=== PATIENT | female | born 1990 | race Two or more races ===

== ENCOUNTER 2024-03-05 10:18 | Inpatient (IN) ==
[~2024-03-05 10:18] MED LIST: Lidocaine 1% VIAL 10 MG/ML 30 ML VIAL INJ PRN
[2024-03-05] MEDS: Dinoprostone 10 MG VAG.SUPP VAGINAL ONE (11:26)
[2024-03-05 12:03] LABS: Hematocrit 34.3 % (35-45); Hemoglobin 11.4 g/dL (11.5-14.3); Mean Corpuscular Hemoglobin 28.3 pg (27-33); Mean Corpuscular Hgb Conc 33.1 g/dL (31-36); Mean Corpuscular Volume 85.5 fL (80-97); Red Blood Count 4.01 10^6/uL (3.63-4.92); Red Cell Distribution Width 13.5 % (12-17); White Blood Count 9.2 10^3/uL (3.8-11.8)
[2024-03-05 12:09] LABS: Albumin 3.5 g/dL (3.2-5.2); Albumin/Globulin Ratio 1.2 (1-3); Calcium 9.1 mg/dL (8.6-10.3); Creatinine, Serum 0.62 mg/dL (0.51-0.95); Globulin 2.9 g/dL (2-4); Potassium 4.8 mmol/L (3.5-5.0); Total Bilirubin 0.2 mg/dL (0.2-1.0); Total Protein 6.4 g/dL (6.4-8.9); Uric Acid 5.5 mg/dL (2.3-6.6); eGFR CKD-EPI 121.3 (>60)
[2024-03-05 12:24] LABS: Urine Creatinine Concentration 23.6 mg/dL (20.00-320.00); Urine TP Creat Ratio 0.25 mg/mg
[2024-03-05 12:27] LABS: Urine Benzodiazepine Screen None Detected (None Detect); Urine Cannabinoids Screen None Detected (None Detect); Urine Opiates Screen None Detected (None Detect)
[2024-03-05 12:37] LABS: ABS Lymphocytes 1.8 10^3/uL (1.0-4.8); ABS Monocytes 0.7 10^3/uL (0.0-0.9); ABS Neutrophils 6.6 10^3/uL (1.5-7.6); Eosinophil % 0.3 %; Giant Platelets Present; Lymphocyte % 19.7 %; Platelet Count 182 10^3/uL (150-450)
[2024-03-05] MEDS: Lactated Ringers 1000 ml BAG 1,000 ML IV ONE (13:52)
[2024-03-06] MEDS: miSOPROStol 100 mcg TAB ONE ×3 (10:58→20:44)
[2024-03-06 11:59] LABS: ABS Basophils 0.1 10^3/uL (0.0-0.1); ABS Lymphocytes 1.5 10^3/uL (1.0-4.8); ABS Monocytes 0.7 10^3/uL (0.0-0.9); ABS Neutrophils 9.9 10^3/uL (1.5-7.6); Eosinophil % 0.1 %; Hematocrit 35.3 % (35-45); Hemoglobin 11.6 g/dL (11.5-14.3); Lymphocyte % 12.5 %; Mean Corpuscular Hemoglobin 27.9 pg (27-33); Mean Corpuscular Hgb Conc 32.8 g/dL (31-36); Mean Corpuscular Volume 85.1 fL (80-97); Mean Platelet Volume 10.9 fL (7.5-11.2); Platelet Count 187 10^3/uL (150-450); Red Blood Count 4.14 10^6/uL (3.63-4.92); Red Cell Distribution Width 13.4 % (12-17); White Blood Count 12.3 10^3/uL (3.8-11.8)
[2024-03-06 12:40] LABS: Albumin 3.4 g/dL (3.2-5.2); Albumin/Globulin Ratio 1.2 (1-3); Calcium 9.1 mg/dL (8.6-10.3); Creatinine, Serum 0.72 mg/dL (0.51-0.95); Globulin 2.9 g/dL (2-4); Total Bilirubin 0.2 mg/dL (0.2-1.0); Total Protein 6.3 g/dL (6.4-8.9); Uric Acid 5.5 mg/dL (2.3-6.6); eGFR CKD-EPI 113.9 (>60)
[2024-03-06 12:46] LABS: Urine Creatinine Concentration 32.97 mg/dL (20.00-320.00); Urine TP Creat Ratio 0.27 mg/mg
[2024-03-06] MEDS: Lidocaine 2% JELLY 6 ML Topical TOPICAL ONE (15:39)
[2024-03-07] MEDS: Oxytocin in LR 20,000 MILLI.UNIT/1,000 ML BAG IV SCH (05:21)
[2024-03-07] MEDS: Lidocaine 2% JELLY 6 ML Topical TOPICAL SCH (07:48)
[2024-03-07] MEDS: miSOPROStol 100 mcg TAB ONE (12:59)
[2024-03-07] MEDS ORDERED: Terbutaline INJ 1 MG/ML 1 ml VIAL SUBCUT PRN (17:06)
[2024-03-07] MEDS: miSOPROStol 100 mcg TAB VAGINAL ONE (17:15)
[2024-03-08] MEDS ORDERED: Oxytocin 10 UNITS/ML 1 ML VIAL ONE (04:39)
[2024-03-08] MEDS ORDERED: Morphine PF AMP (0.5MG/ML) 5 MG/10 ML AMP ONE (04:39)
[2024-03-08] MEDS ORDERED: Scopolamine 1 mg/72hr PATCH ONE (04:39)
[2024-03-08] MEDS ORDERED: Phenylephrine 40 mcg/mL 10mL (400mcg) SYRINGE ONE (04:40)
[2024-03-08] MEDS ORDERED: Acetaminophen IV 1 GM/100ML 1,000 MG/100 ML BAG IV ONE (05:41)
[2024-03-08] MEDS ORDERED: Ondansetron 4 mg VIAL 2 MG/ML 2 ml VIAL ONE (05:44)
[2024-03-08] MEDS ORDERED: Dexamethasone IV 4 MG/ML VIAL 1 ml VIAL ONE (05:46)
[2024-03-08] MEDS ORDERED: Naloxone 0.4 mg VIAL 0.4 mg/ml 1 ml VIAL IV PUSH PRN (05:49)
[2024-03-08] MEDS ORDERED: Metoclopramide 5 MG/ML VIAL (10 mg) IV PRN (05:49)
[2024-03-08] MEDS ORDERED: Acetaminophen IV 1 GM/100ML 1,000 MG/100 ML BAG IV PRN (05:49)
[2024-03-08] MEDS ORDERED: Ondansetron 4 mg VIAL 2 MG/ML 2 ml VIAL IV PRN (05:49)
[2024-03-08] MEDS ORDERED: Naloxone 0.4 mg VIAL 0.4 mg/ml 1 ml VIAL IV PRN (05:50)
[2024-03-08] MEDS ORDERED: fentaNYL 100 mcg/2 ml 50 MCG/ML VIAL IV PRN (05:50)
[2024-03-08] MEDS ORDERED: Polyethylene Glycol 3350 17 GM PACKET PO PRN (06:04)
[2024-03-08] MEDS ORDERED: Witch Hazel PAD JAR TOPICAL PRN (06:04)
[2024-03-08] MEDS ORDERED: Dibucaine 1% OINT 28.35 GM TUBE PR PRN (06:04)
[2024-03-08] MEDS ORDERED: Glycerin ADULT 2.4 gm SUPP PR PRN (06:04)
[2024-03-08] MEDS ORDERED: Lactated Ringers 1000 ml BAG 1,000 ML IV SCH (07:00)
[2024-03-08] MEDS: Oxytocin in LR 20,000 MILLI.UNIT/1,000 ML BAG IV SCH (09:11)
[2024-03-08 10:10] LABS: Urine Bacteria Absent /HPF (Absent); Urine Red Blood Cell 2+(6-10/hpf) /HPF (0-Trace); Urine Squamous Epithelial Cell Present /HPF (Absent); Urine White Blood Cell Absent /HPF (0-Trace)
[2024-03-08 10:37] LABS: Urine Color Light-Yellow
[2024-03-08 10:38] LABS: Urine Appearance Clear; Urine Blood Trace (Negative); Urine Ketones Negative (Negative); Urine Protein Negative (Negative); Urine Specific Gravity 1.015 (1.002-1.030); Urine Urobilinogen Negative (Negative); Urine pH 8.5 (5.0-8.0)
[2024-03-08 10:39] LABS: Urine Bilirubin Negative (Negative); Urine Glucose Negative (Negative); Urine Nitrite Negative (Negative)
[2024-03-08] MEDS: Dinoprostone 10 MG VAG.SUPP VAGINAL ONE (15:21)
[2024-03-08] MEDS: ceFAZolin VIAL 2 GM in NS 0.9% 100 ml BAG 100 ML IVPB ONE (15:21)
[2024-03-08] MEDS: ceFOXitin 2 GM IVPREMIX 2 GM/50 ML BAG ONE (15:22)
[2024-03-08] MEDS: Sodium Citrate/Citric Acid LIQ 15 ML UDC PO ONE (15:22)
[2024-03-08] MEDS: ceFOXitin 2 GM IVPREMIX 2 GM/50 ML BAG IVPB ONE (15:22)
[2024-03-08] MEDS: miSOPROStol 100 mcg TAB ONE (15:24)
[2024-03-08] MEDS: Buffered Lidocaine 1% SYRIN 1 ml INTRADERM ONE (22:19)
[2024-03-09 06:58] LABS: ABS Lymphocytes 2.5 10^3/uL (1.0-4.8); ABS Monocytes 0.9 10^3/uL (0.0-0.9); ABS Neutrophils 11.7 10^3/uL (1.5-7.6); Eosinophil % 0.2 %; Hematocrit 27.6 % (35-45); Hemoglobin 9.1 g/dL (11.5-14.3); Lymphocyte % 16.7 %; Mean Corpuscular Hgb Conc 32.9 g/dL (31-36); Mean Corpuscular Volume 85.2 fL (80-97); Mean Platelet Volume 10.7 fL (7.5-11.2); Platelet Count 148 10^3/uL (150-450); Red Blood Count 3.24 10^6/uL (3.63-4.92); Red Cell Distribution Width 13.2 % (12-17); White Blood Count 15.2 10^3/uL (3.8-11.8)
[2024-03-11 08:23] VITALS: BP 132/89
== END 2024-03-11 14:09 | disposition home or self-care (01) | DRG 540 ==
LOC: MCHOBOUT 10:18 → MCHOB 11:41
PROVIDERS: ADMIT Midwife; ATTEND Obstetrics & Gynecology